=== PATIENT | male | born 2000 | race Hispanic/Latino ===

== ENCOUNTER 2024-12-15 08:02 | Emergency (ER) | payer OTHER ==
[~2024-12-15] VITALS: Ht 185.4 cm; Wt 122.5 kg
[2024-12-15 09:12] LABS: RAPID GROUP A STREP negative (NEGATIVE)
[2024-12-15 09:29] LABS: INFLUENZA TYPE A Negative For Type A (NEGATIVE); INFLUENZA TYPE B Negative For Type B (NEGATIVE)
[2024-12-15 09:42] LABS: SARS-CoV-2, RNA, NAAT NEGATIVE SARS CoV-2 (NEGATIVE)
[2024-12-15] MEDS ORDERED: AMOX1TAB16 PO (09:51)
--- NOTE | 2024-12-15 09:52 | ERN ---
General Chief Complaint: Sore Throat Stated Complaint: SORE THROAT Time Seen by MD: 08:03 History of Present Illness Initial Comments 24-year-old male with a past medical history came in for throat pain and difficulty swallowing for the past couple of days. Patient has been having some subjective fever. Patient otherwise has no concerns. Allergies: Coded Allergies: No Known Drug Allergies (Unverified Allergy, Unknown, 12/15/24) Past Medical History Past Medical History: No Pertinent History Past Surgical History: None ROS Dictation CONSTITUTIONAL: Negative except for HPI HEAD/FACE: Negative except for HPI EENT: Negative except for HPI RESPIRATORY: Negative except for HPI GASTROINTESTINAL/ABDOMINAL: Negative except for HPI GENITOURINARY: Negative except for HPI MUSCULOSKELETAL: Negative except for HPI INTEGUMENTARY: Negative except for HPI NEUROLOGICAL/PSYCH: Negative except for HPI HEMATOLOGIC/LYMPHATIC: Negative except for HPI All Systems Negative, Except as noted above. 13 point review of systems assessed and all negative except for above. Physical Exam Physical Exam Dictation Vital Signs reviewed General Appearance: Alert, oriented x 3, no acute distress, well developed, nourished. Head and Face: non-traumatic. Eyes: PERRL, pink conjunctivas, eyelid no trauma, anterior chamber with arcus senilis. Ears: Pinnas intact and no signs of trauma or erythema ear canals clear and no discharge TM no erythema Nose: No discharge, no bleeding. Oropharynx: Mouth normal, tongue pink, pharynx clear,no erythema, tonsils no exudates, no abscesses noted, mucous membrane moist Neck: Supple, non-tender, no thyromegaly, no masses, no JVD, no bruits Breast:Deferred Chest:No tenderness, no crepitus, no paradoxical movement, no retractions Lungs:Clear, well-ventilated, symmetric, no rales, no wheezing, no rhonchi, no stridor, good breath sounds bilaterally Heart: Regular rate, regular rhythm, no murmur, no gallops Vascular: no peripheral edema, Abdomen: Soft, positive bowel sounds, nondistended, no guarding, nontender, no rebound, no masses no hepatomegaly, no splenomegaly, no Arcos's sign, no hernias. Rectal: Deferred Genital: Deferred Neurological: Normal speech, motor function intact, sensory function intact Musculoskeletal: Neck nontender, full range of motion, back nontender, full range of motion, Extremities: nontender, full range of motion Skin: Color pink, dry, no turgor, no rash, no lacerations, no abrasions, no contusions. Lymphatic: Deferred Results Laboratory and Microbiology Lab and Micro Result Laboratory Tests Test 12/15/24 08:08 Influenza Type A Antigen Negative For Type A Influenza Type B Antigen Negative For Type B SARS-CoV-2, RNA, NAAT NEGATIVE SARS CoV-2 Group A Streptococcus Rapid negative (NEGATIVE) MDM MDM: Differential diagnosis: There are no social concerns with this patient. Prescription drug management Prescriptions will include: Medical management and examination interpretation discussions were had by me with other qualified healthcare professionals as indicated for the patient's care. ED Course Orders Procedure Category Date Status Time Influenza Type A & B, LAB 12/15/24 Complete Rapid 08:08 Covid Rna Naat LAB 12/15/24 Complete 08:08 Rapid (Group A Strep) LAB 12/15/24 Complete 08:08 Ceftriaxone 1g Vial PHA 12/15/24 Verified (Rocephine 1g Inj) 10:00 Dexamethasone 4mg/Ml PHA 12/15/24 Verified 1ml Vial (Dexametha 10:00 Vital Signs Date Time Temp Pulse Resp B/P (MAP) Pulse Ox O2 Delivery O2 Flow Rate FiO2 12/15/24 08:54 99.1 97 18 141/71 97 Room Air* 0 21 12/15/24 08:03 99.3 103 16 153/90 96 Room Air DX & DISP Disposition: Discharge Departure Impression: Primary Impression: Pharyngitis Condition: Stable Scripts Amoxicillin/Potassium Clav (Amox Tr-K Clv 875-125 mg Tab) 875 Mg-125 Mg Tablet 1 EACH PO BID for 10 Days, #20 TAB 0 Refills Prov: HEATH GLASER MD 12/15/24 Referrals: SELF,REFERRAL (PCP) HEATH GLASER MD Dec 15, 2024 09:52
[2024-12-15] MEDS: dexaMETHasone SOD PHOSPHATE 4 MG/ML 1ML VIAL IM SCH (09:57)
[2024-12-15] MEDS: cefTRIAXone 1G VIAL IM ONE (09:57)
[2024-12-15 10:00] VITALS: BP 137/68; PULSE 90; RESP 18; TEMP 98.7; O2SAT 96
== END 2024-12-15 10:19 | disposition home or self-care (01) ==
LOC: EDH 08:02
DX: J02.9 Acute pharyngitis, unspecified (principal); Z20.822 Contact with and (suspected) exposure to COVID-19
CPT/HCPCS: 99284; 87635; 87880; 87804 ×2; 96372 ×2; J1100; J0696